=== PATIENT | female | born 1980 | race Two or more races ===

== ENCOUNTER 2023-08-10 17:37 | Emergency (ER) | payer BC ==
[~2023-08-10] VITALS: Ht 160 cm; Wt 61.2 kg
[2023-08-10] MEDS ORDERED: WELLBUTRIN SR100 MG PO (17:45)
[2023-08-10] MEDS ORDERED: AMBIEN10 MG PO (17:45)
== END 2023-08-10 21:16 | disposition home or self-care (01) ==
LOC: ER 17:38
DX: L02.212 Cutaneous abscess of back [any part, except buttock and flank] (principal)